=== PATIENT | male | born 2000 | race Caucasian/White ===

== ENCOUNTER 2020-07-16 16:00 | Emergency (ER) | payer OTHER ==
[~2020-07-16] VITALS: Ht 172.7 cm; Wt 59.0 kg
[2020-07-16] MEDS ORDERED: KEPPRA XR500 MG PO (16:20)
== END 2020-07-16 20:36 | disposition home or self-care (01) ==
LOC: ER 16:00
DX: G40.802 Other epilepsy, not intractable, without status epilepticus (principal); R53.81 Other malaise